=== PATIENT | male | born 1980 | race Hispanic/Latino ===

== ENCOUNTER → 2018-06-13 10:54 | Outpatient (CLI) | payer MEDICAID, SELFPAY ==
[2018-06-13 14:48] LABS: Absolute Lymphocyte Count 2.85 X10^3/ul (0.83-4.51); Absolute Neutrophil Count 3.2 X10^3/uL (2.0-7.7); Basophil# 0.02 X10^3/uL; Basophil% 0.3 % (0-1); Eosinophil# 0.07 X10^3/uL; Hemoglobin 15.5 g/dl (13.0-16.5); Lymphocyte # 2.85 X10^3/ul (4.0); Lymphocyte % 42.6 % (19-41); Mean Corpuscular Hgb 32.4 pg (27.0-32.0); Mean Corpuscular Volume 98.3 fL (80-94); Mean Platelet Vol. 10.6 fl (6.2-12.0); Monocyte# 0.49 X10^3/uL; Monocyte% 7.3 % (0-10); Neutrophil # 3.23 X10^3/uL (2.7-7.7); Neutrophil % 48.4 % (47-70); Platelet Count 207 K/mm3 (150-450); RBC Distribution Width CV 12.8 % (11.6-14.6); RBC Distribution Width SD 45.3 fl (35.1-43.9); Red Blood Count 4.78 M/mm3 (4.6-6.2); White Blood Count 6.7 K/mm3 (4.4-11.0)
[2018-06-13 14:52] LABS: POSITIVE COUNT NO; POSITIVE DIFFERENTIAL NO; POSITIVE MORPHOLOGY NO
[2018-06-13 14:58] LABS: AST(SGOT) 21 U/L (15-37); Alanine Aminotransfer ALT/SGPT 41 U/L (16-61); Albumin, Serum 3.8 g/dL (3.2-5.0); Alkaline Phosphatase 67 U/L (45-117); Anion Gap 8 (5-15); BUN 17 mg/dL (7-18); BUN/Creat Ratio 16.2 RATIO (10-20); Calcium,Total 8.9 mg/dL (8.5-10.1); Chloride 107 mmol/L (98-107); Cholesterol 203 mg/dL (200); Creatinine, Serum 1.05 mg/dL (0.70-1.30); EST Glomerular Filtration Rate 85 mL/min (>60); Est Glom Filt Rate - Afr Amer 103 mL/min (>60); Globulin 3.8 g/dL (2.2-4.2); Glucose 102 mg/dL (74-106); High Density Lipoprotein 40 mg/dL; Potassium 4.3 mmol/L (3.5-5.1); Protein, Total 7.6 g/dL (6.4-8.2); Sodium Level 141 mmol/L (136-145); Triglycerides 265 mg/dL; Very Low Density Lipoprotein 53 mg/dL (5-40)
== END ==
PROVIDERS: Family Provider Family Medicine; PCP Family Medicine; Visit Provider Family Medicine
DX: Z00.01 Encounter for general adult medical examination with abnormal findings (principal)
CPT/HCPCS: 36415; 80053; 80061; 85025

== ENCOUNTER → 2018-06-28 16:51 | Outpatient (CLI) | payer OTHER, SELFPAY ==
--- NOTE | 2018-06-28 16:55 | RAD_ITS ---
STUDY: X-RAY - ORBITS REASON FOR EXAM: Male, 38 years old. This study is being performed as a clearance examination for exclusion of orbital metal, prior to the performance of an MRI examination. TECHNIQUE: 2 view(s) of the orbits were obtained. COMPARISON: None. FINDINGS: Normal bilateral orbits without a metallic orbital foreign body. Normal visualized facial bones. Normal paranasal sinuses. The soft tissue structures are unremarkable. RAD/Orbits for Foreign Body IMPRESSION: No demonstrated metallic orbital foreign body. The patient is cleared for an MRI examination. Electronically Signed: Kamla Clemente MD at 17:56 EDT Tel , Service support ,
--- NOTE | 2018-06-28 18:15 | MRI_ITS ---
STUDY: MRI BRAIN WITH AND WITHOUT CONTRAST REASON FOR EXAM: Male, 38 years old. Diplopia, headache, fatigue. TECHNIQUE: Standardized multiplanar fat and water weighted pulse sequences were obtained. 20 IV Dotarem was administered for the contrast portion of the examination. COMPARISON: None. FINDINGS: Normal size of the ventricles and extra-axial spaces for the patient's age. Normal white matter tracts of the supratentorial brain. Normal bilateral basal ganglia. Normal thalami. There is no extra-axial fluid accumulation. Normal flow voids within the major intracranial circulation suggesting patency by spin echo criteria. There is no enhancing intra-axial or extra-axial abnormality. Normal sella turcica, pituitary gland, infundibular stalk, optic chiasm and hypothalamus. Cavernous sinuses are unremarkable. Normal midbrain, sheila and medulla. Normal cerebellum. Normal basal cisterns. Normal bilateral temporal bones. Normal bilateral internal auditory canals. No demonstrated orbital abnormality, within the constraints of a routine brain study. Extraocular muscles are symmetric. There is no demonstrated mass or enhancing lesion. No orbital infiltration is noted. There is mild mucosal thickening in the left maxillary sinus. Normal calvarium and skull base. Normal visualized soft tissue structures. MRI/Brain W/WO Contrast IMPRESSION: Normal unenhanced and enhanced MRI of the brain. Trace chronic sinusitis. Electronically Signed: Kamla Clemente MD at 21:41 EDT Tel , Service support ,
== END ==
PROVIDERS: Family Provider Family Medicine; PCP Family Medicine; Referring Provider Family Medicine; Visit Provider Family Medicine
DX: H55.00 Unspecified nystagmus (principal); H53.2 Diplopia
CPT/HCPCS: 70030; 70553; A9575

== ENCOUNTER 2020-04-21 11:51 | Emergency (ER) | payer OTHER, SELFPAY ==
[2020-04-21 11:52] VITALS: BP 107/48; PULSE 82; RESP 16; TEMP 36.1; O2SAT 98; BMI 27.6
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
== END 2020-04-21 12:56 | disposition home or self-care (01) ==
LOC: ED 12:37
PROVIDERS: Emergency Provider Emergency Medicine; PCP Family Medicine
DX: S05.02XA Injury of conjunctiva and corneal abrasion without foreign body, left eye, initial encounter (principal); W45.8XXA Other foreign body or object entering through skin, initial encounter; Y92.89 Other specified places as the place of occurrence of the external cause; Y99.0 Civilian activity done for income or pay
CPT/HCPCS: 99283

== ENCOUNTER 2021-09-13 08:35 | Emergency (ER) | payer OTHER, SELFPAY ==
[2021-09-13 08:36] VITALS: BP 126/96; PULSE 97; RESP 14; TEMP 36.2; O2SAT 99; BMI 27.6
--- NOTE | 2021-09-13 09:22 | RAD_ITS ---
STUDY: X-RAY - LEFT FOOT CLINICAL: Male, 41 years old. pain UNABLE TO PUT PRESSURE ON FOOT, NKI TECHNIQUE: 3 view(s) of the foot. COMPARISON: None. FINDINGS: Normal talus, calcaneus, and tarsal bones. No visualized plantar calcaneal spur. Normal visualized subtalar, talonavicular, calcaneocuboid, tarsal and tarsometatarsal articulations. Normal metatarsi. Normal metatarsophalangeal joint of the great toe. Normal tibial and fibular sesamoid bones. Normal interphalangeal joint of the great toe. Normal phalanges of the great toe. Normal second through fifth metatarsophalangeal joints. Normal interphalangeal joints and phalanges of the lesser toes. The soft tissue structures are unremarkable. There is no demonstrated fracture. RAD/Foot min 3 Views IMPRESSION: Normal x-ray examination of the foot. Electronically Signed: Joe Hall MD at 9:52 EDT ,
--- NOTE | 2021-09-13 09:22 | VDLE_ITS ---
Reason For Study: Pain Procedure LEFT This is a venous duplex using B-mode, color GSV is normal. flow and spectral Doppler. CFV is compressible, spontaneous, phasic, Exam performed portable in ED. competent, and demonstrates normal A preliminary report was called and/or faxed augmentation. to [facility]. FV is compressible, spontaneous, phasic, competent and demonstrates normal augmentation. POP V is compressible, spontaneous, phasic, competent and demonstrates normal augmentation. T/P Trunk is compressible. PTV is compressible. LT PerV is compressible. VL/Venous Duplex US, Unilateral Interpretation Summary There is no evidence of left lower extremity deep vein thrombosis. Left great s aphenous vein appears patent and compressible segmentally. Ordering Physician: Marisel Bazzi Referring Physician: Lilli Agustin Performed By: Kelley Almanzar RVT
--- NOTE | 2021-09-13 09:23 | ED.VIS.LOWEX ---
HPI History of Present Illness Chief Complaint: Lower Extremity Injury Detail of Chief Complaint: Pain to left leg x4 days Informant: patient Narrative Narrative: Patient states that he initially developed pain in the left foot 4 days ago over the area of the heel. Patient subsequently started having pain in his calf and now noticed 2 days ago that he had bruising to the posterior part of his thigh. Patient denies any injury or trauma. Patient complains of pain in his foot with walking. He denies chest pain or shortness of breath. No history of recent travel or surgery. No history of DVT. [facility] Medical History (Updated 09/13/21 @ 10:[address] Marisel Bazzi, DO) ADHD (attention deficit hyperactivity disorder) Home Medications NK 04/21/20 [History Last Taken Unknown] ciprofloxacin HCl 2 drp LEFT EYE Q4 #1 bottle 04/21/20 [Rx Last Taken Unknown] Allergy/AdvReac Type Severity Reaction Status Date / Time No Known Allergies Allergy Verified 09/13/21 08:37 Social History Smoking Status: Never smoker ROS ROS ED Constitutional Constitutional ED: Reports systems reviewed and no addt'l complaints, except as documented; Denies body ache(s), change in weight or chills Eyes Eyes: Denies acute decrease in peripheral vision, change in vision, double vision or loss of vision ENT ENT ED: Reports none; Denies ear pain, lip swelling, loss taste/smell, neck pain, otalgia or sore throat Cardiovascular Cardiovascular: Reports none; Denies abdominal pain, chest pain with activity, leg edema, lightheadedness, palpitations, rapid heart rate or syncope Respiratory/Chest Respiratory/Chest: Reports none; Denies change in mental status, dry cough, dyspnea, hemoptysis, shortness of breath at rest or shortness of breath with exertion Gastrointestinal Gastrointestinal: Reports none; Denies abdominal pain, change in stool character, diarrhea, hematemesis, hematochezia, melena, rectal bleeding or vomiting Genitourinary Genitourinary ED: Reports none; Denies abdominal discomfort, anuria, dysuria, genital pain or polyuria Musculoskeletal Musculoskeletal: Reports none and other Details: Pain left foot, calf, and thigh ; Denies arthralgias, back pain, difficulty walking, extremity pain, muscle weakness or myalgias Integumentary Reports none; Denies abscess or rash Neurologic Neurologic: Reports none; Denies abnormal gait, confusion, focal weakness, frequent falls, headache(s), loss of vision, numbness, paresthesias, radicular pain, vertigo or weakness Psychiatric Psychiatric: Reports systems reviewed and no addt'l complaints, except as documented and none; Denies behavioral changes, confusion, difficulty concentrating, hallucinations, suicidal ideation, tactile hallucinations or visual hallucinations Endocrine Endocrinology: Denies none, cold intolerance, excessive sweating, fatigue or heat intolerance Hematologic/Lymphatic Hematologic/Lymphatic: Reports none; Denies anemia, easy bleeding or easy bruising Allergic/Immunologic Allergic/Immunologic ED: Denies as per HPI, none, lip swelling, mouth swelling, throat swelling, tongue swelling or hives EXAM Physical Exam Const Vital Signs: 09/13/21 08:36 Temperature 97.1 F L Temperature Source Temporal Pulse Rate 97 Respiratory Rate 14 Blood Pressure 126/96 H Blood Pressure Mean 106 Pulse Ox 99 Oxygen Delivery Method Room Air Positive well nourished and well developed General Appearance ED: well developed and NAD HEENT Reports TM's clear and moist mucous membranes normocephalic and atraumatic; Negative for trauma or tenderness Tympanic Membrane ED: Yes TM's clear Eyes PERRL and EOMs intact bilaterally General Eye ED: Negative for pale conjunctiva or scleral icterus Neck no lymphadenopathy, supple and no JVD General: Negative for tenderness Chest Wall inspection of chest normal and palpation of chest normal Chest: Negative for tenderness Resp normal respiratory effort and clear to auscultation bilaterally Effort and Inspection: Negative for respiratory distress or pain with movement Auscultation: Negative for rhonchi, wheezes or diminished lung sounds Cardio regular rate, regular rhythm, S1 normal heart sound, S2 normal heart sound and no murmurs Peripheral Pulses: pulses 2+ throughout GI normal to inspection, nondistended, normoactive bowel sounds, soft to palpation, non-tender, non-distended and no masses Back/Spine no CVA tenderness and no thoracic nor lumbar tenderness Extremity Extremity Narrative: Left foot-no evidence of trauma. No deformity. Mild discomfort to palpation over the plantar aspect of the heel. No lower leg edema noted. No ropes or cords palpated. Patient does have some ecchymosis and bruising noted to the posterior distal thigh. Patient has normal pulses. General Extremety ED: Negative for edema General Extremity: Negative for edema Neuro oriented x3, CN's II-XII intact bilaterally, no sensory deficits noted and gait normal Sensorium / Orientation: awake, alert, oriented to person, oriented to place and oriented to time Motor Exam: strength 5/5 throughout and strength abnormal Psych mental status grossly normal Skin no rashes or lesions noted and no wounds MDM MDM MDM Narrative Medical decision making narrative: Patient had venous Doppler of the left lower extremity that was negative for DVT. Patient had an x-ray of his left foot that was unremarkable. At this point etiology of discomfort unclear. He will take ibuprofen for discomfort and he will be referred to podiatry for follow-up if the pain persists. Patient did not want crutches. Radiography Diagnostic Testing: Clinical Impression(s) from Imaging Studies Foot X-Ray 09/13/21 09:22 IMPRESSION: Normal x-ray examination of the foot. Electronically Signed: Joe Hall MD at 9:52 EDT Reading Location ID and State: [address] [place] [address] , Service support , Three-view x-rays of left foot obtained interpreted by myself as no acute fractures or dislocations. Radiology in agreement. Discharge Plan Triage Chief Complaint: Lower Extremity Injury ED Provider: Marisel Bazzi Dx/Rx/DC Orders Clinical Impression: Acute foot pain Instructions: ED Pain, Acute, Uncertain Cause Prescriptions: No Action NK RF: 0 ciprofloxacin HCl 1 DROP bottle 2 drp LEFT EYE Q4 Qty: 1 RF: 0 Primary Care Provider: Lilli Augstin Referrals: Lilli Agustin MD [Primary Care Provider] - Kit Neves DPM [STAFF PHYSICIAN] - 3-5 Days Disposition Disposition: Home, Self Care
[2021-09-13 10:50] VITALS: PULSE 89; RESP 17; O2SAT 99
== END 2021-09-13 10:51 | disposition home or self-care (01) ==
PROVIDERS: Emergency Provider Emergency Medicine; PCP Family Medicine; Visit Provider Emergency Medicine
DX: M79.673 Pain in unspecified foot (principal); M79.605 Pain in left leg; M79.659 Pain in unspecified thigh; F90.9 Attention-deficit hyperactivity disorder, unspecified type
CPT/HCPCS: 73630; 93971; 99282

== ENCOUNTER 2022-07-11 19:00 | Emergency (ER) | payer OTHER, SELFPAY ==
[2022-07-11 19:00] VITALS: BP 146/82; PULSE 114; RESP 18; TEMP 36.3; O2SAT 97; BMI 29.0
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
[2022-07-11] MEDS: Acetaminophen 325 MG Tablet 650 MG PO (21:35)
[2022-07-11] MEDS: Lidocaine 1% /Epi 1:100 (20ml) 20 ML Vial INFILT (21:36)
== END 2022-07-11 22:38 | disposition home or self-care (01) ==
PROVIDERS: Emergency Provider Emergency Medicine; PCP Family Medicine; Visit Provider Emergency Medicine
DX: S01.01XA Laceration without foreign body of scalp, initial encounter (principal); S06.9X0A Unspecified intracranial injury without loss of consciousness, initial encounter; V18.0XXA Pedal cycle driver injured in noncollision transport accident in nontraffic accident, initial encounter; Y93.89 Activity, other specified
CPT/HCPCS: 13121; 70450; 99283

== ENCOUNTER → 2022-09-11 | Outpatient (CLI) | payer OTHER, SELFPAY ==
[2022-09-11 12:43] LABS: Absolute Lymphocyte Count 3.31 X10^3/uL (0.83-4.51); Absolute Neutrophil Count 3.4 X10^3/uL (2.0-7.7); Basophil# 0.03 X10^3/uL; Basophil% 0.4 % (0-1); Eosinophil# 0.37 X10^3/uL; Eosinophils% 4.8 % (0-5); Hematocrit 45.8 % (40-54); Hemoglobin 15.6 g/dL (13.0-16.5); Lymphocyte # 3.31 X10^3/ul (0.83-4.51); Mean Corp Hgb Conc 34.1 g/dL (32-36); Mean Corpuscular Hgb 32.7 pg (27.0-32.0); Mean Platelet Vol. 10.3 fl (6.2-12.0); Monocyte# 0.54 X10^3/uL; NRBC Flagged by Analyzer 0 % (0-5); Neutrophil # 3.41 X10^3/uL (2.7-7.7); Neutrophil % 44.4 % (47-70); Platelet Count 212 K/mm3 (150-450); RBC Distribution Width CV 12.3 % (11.6-14.6); RBC Distribution Width SD 44.1 fl (35.1-43.9); Red Blood Count 4.77 M/mm3 (4.6-6.2); White Blood Count 7.7 K/mm3 (4.4-11.0)
[2022-09-11 13:39] LABS: ALB/GLOB Ratio 0.9 RATIO (0.9-2.4); AST(SGOT) 21 U/L (15-37); Alanine Aminotransfer ALT/SGPT 45 U/L (16-61); Albumin, Serum 3.5 g/dL (3.2-5.0); Alkaline Phosphatase 61 U/L (45-117); Anion Gap 6 (5-15); BUN 18 mg/dL (7-18); BUN/Creat Ratio 18.7 RATIO (10-20); Calcium,Total 9.2 mg/dL (8.5-10.1); Chloride 108 mmol/L (98-107); Cholesterol 229 mg/dL (200); Creatinine, Serum 0.96 mg/dL (0.70-1.30); EST Glomerular Filtration Rate 92 mL/min (>60); Est Glom Filt Rate - Afr Amer 111 mL/min (>60); Globulin 3.9 g/dL (2.2-4.2); Glucose 100 mg/dL (74-106); High Density Lipoprotein 39 mg/dL; Potassium 4.1 mmol/L (3.5-5.1); Protein, Total 7.4 g/dL (6.4-8.2); Sodium Level 139 mmol/L (136-145); Triglycerides 290 mg/dL; Very Low Density Lipoprotein 58 mg/dL (5-40)
== END | disposition home or self-care (01) ==
LOC: BFHLAB 10:22
PROVIDERS: PCP Family Medicine; Referring Provider Family Medicine; Visit Provider Family Medicine
DX: Z00.01 Encounter for general adult medical examination with abnormal findings (principal)
CPT/HCPCS: 36415; 80053; 80061; 85025

== ENCOUNTER 2023-06-24 19:59 | Emergency (ER) | payer OTHER, SELFPAY ==
[2023-06-24 19:59] VITALS: BP 146/90; PULSE 96; RESP 16; TEMP 36.6; O2SAT 97; BMI 29.9
--- NOTE | 2023-06-24 20:21 | RAD_ITS ---
INDICATION: laceration, index finger EXAMINATION/TECHNIQUE: X-RAY - RIGHT HAND XR Fingers Min 2 Views COMPARISON: None. FINDINGS: 3 views of the right index finger. BONES: Normal anatomic alignment without evidence of fracture or subluxation. No concerning bony lesion or abnormal sclerosis to suggest lesion. JOINTS: No significant degenerative change. SOFT TISSUES: Unremarkable. RAD/Finger(s) Min 2 Views IMPRESSION: No acute osseous abnormality or radiopaque foreign body of the right index finger. Electronically Signed: Roberto Carlos Chau MD at 22:51 EDT ,
--- NOTE | 2023-06-24 20:34 | EDS_ITS ---
HPI <ERICA Pardo - Last Filed: 06/24/23 21:59> History of Present Illness Chief Complaint: Laceration Narrative Narrative: Patient presenting today with a laceration to his right index finger that he got this evening at work. He reports that he was working with a dryer when he cut his finger on a piece of metal. Tetanus was updated about a year ago. He is not on any blood thinners. He is right-handed. He denies any other injury. PFSH <ERICA Pardo - Last Filed: 06/24/23 21:59> [facility] Medical History ADHD (attention deficit hyperactivity disorder) Home Medications NK 04/21/20 [History Last Taken Unknown] Allergy/AdvReac Type Severity Reaction Status Date / Time No Known Allergies Allergy Verified 06/24/23 20:01 Social History Smoking Status: Never smoker ROS <ERICA Pardo - Last Filed: 06/24/23 21:59> ROS ED Constitutional Constitutional ED: Denies chills or fever(s) Cardiovascular Cardiovascular: Denies chest pain Respiratory/Chest Respiratory/Chest: Denies cough or dyspnea Gastrointestinal Gastrointestinal: Denies abdominal pain, nausea or vomiting Musculoskeletal Musculoskeletal: Denies arthralgias or myalgias Integumentary Reports laceration Neurologic Neurologic: Denies paresthesias EXAM <ERICA Pardo - Last Filed: 06/24/23 21:59> Physical Exam Const Vital Signs: 06/24/23 19:59 Temperature 97.8 F Temperature Source Temporal Pulse Rate 96 Respiratory Rate 16 Blood Pressure 146/90 H Blood Pressure Mean 108 Pulse Ox 97 Oxygen Delivery Method Room Air Positive well nourished, well developed and no apparent distress General Appearance ED: well developed HEENT Reports normocephalic and head/scalp atraumatic Mouth ED: Yes moist mucous membranes normal Eyes PERRL and EOMs intact bilaterally Neck full ROM and supple Chest Wall inspection of chest normal Resp normal respiratory effort and clear to auscultation bilaterally Cardio regular rate and regular rhythm GI soft to palpation, non-tender, non-distended and no masses Back/Spine normal ROM and normal to inspection Extremity normal to inspection and full ROM Extremity Narrative: 4.5 cm linear full-thickness laceration along the lateral aspect of the right second finger. Full flexion and extension at the MCP, PIP, DIP joints of the right second finger. No obvious tendon injury, sensation intact, good capillary refill, right radial pulse 2+. Neuro oriented x3, CN's II-XII intact bilaterally, moves all extremities, no focal motor deficits and no sensory deficits noted Sensorium / Orientation: awake and alert Psych mental status grossly normal and thought process normal [facility] <ERICA Pardo - Last Filed: 06/24/23 21:59> [facility] Narrative Medical decision making narrative: Patient presenting today with a laceration to his right index finger that he got while working on a dryer at home this evening and cut it on a piece of metal. Tetanus is up-to-date. X-ray will be obtained to rule out foreign body and is negative. He does not appear to have any tendon injury. Full flexion extension at the MCP, PIP, DIP joints of his right second finger. This will require suturing. Finger was copiously irrigated with normal saline and cleaned with chlorhexidine. 12 sutures were placed, see procedure note. Patient tolerated procedure well, bandage and bacitracin ointment applied the patient was placed in a aluminum finger splint. Wound care instructions discussed and he is to have stitches out in 10 days. He will be discharged home in stable condition and is comfortable with plan. <Dr. Iftikhar Mireles DO - Last Filed: 06/25/23 00:22> [facility] Narrative Medical decision making narrative: Patient presenting today with a laceration to his right index finger that he got while working on a dryer at home this evening and cut it on a piece of metal. Tetanus is up-to-date. X-ray will be obtained to rule out foreign body and is negative. He does not appear to have any tendon injury. Full flexion extension at the MCP, PIP, DIP joints of his right second finger. This will require suturing. Finger was copiously irrigated with normal saline and cleaned with chlorhexidine. 12 sutures were placed, see procedure note. Patient tolerated procedure well, bandage and bacitracin ointment applied the patient was placed in a aluminum finger splint. Wound care instructions discussed and he is to have stitches out in 10 days. He will be discharged home in stable condition and is comfortable with plan. Interventions / MDM: Differential diagnosis: Laceration Diagnosis considered but do not suspect: No clinical tendon injury. No foreign body on x-ray. My EKG interpretation: N/A Imaging independently reviewed and interpreted by myself: Three-view x-ray right hand: No fractures, no radiopaque foreign body. External documents reviewed: N/A Test considered but not ordered:N/A ED course: Attending note: Patient seen and evaluated with bicycle technician. I perform my own [id number] evaluation. I agree with the plan of work-up. Laceration right index on a metal dryer. Tetanus a year ago. No anticoagulation medicines. Exam full-thickness laceration radial aspect proximal phalanx of the index finger bleeding controlled with pressure. Full range of motion flexion extension of the digit with no weakness. Sensation intact distally. X-ray obtained negative for any radiopaque foreign bodies. No clinical tendon injury. Laceration 4.5 cm in length. This was repaired by bicycle technician. AlumaFoam splint for immobilization help with the healing. Outpatient follow-up and suture removal. Re-evaluation: stable Disposition discussed with patient/family/significant other: Patient Case discussed with consulting clinician: N/A This note was generated with [employer] dictation software. It may contain incorrect words, spelling, and punctuation that were not noted in checking the note before signing. Procedures <ERICA Pardo - Last Filed: 06/24/23 21:59> Lacerations Laceration: Length: 1.77 in Depth: Sub Q Shape: Linear Prep: Chlorhexadine Laceration repair: Digital block, Irrigated and Lidocaine Irrigated (ml): 200 Number of Sutures/Prateek: 12 Suture Information: Ethilon, Simple and 5-0 Discharge Plan Triage Chief Complaint: Laceration ED Midlevel Provider: Do Yeboah ED Provider: Iftikhar Mireles Dx/Rx/DC Orders Clinical Impression: Finger laceration Instructions: ED Laceration, All Closures Prescriptions: No Action NK Primary Care Provider: Lilli Agustin Referrals: Lilli Agustin MD [Primary Care Provider] - 10 Day for suture removal Activity Restrictions/Additional Instructions: Please follow-up with your PCP to have the sutures removed, return for any signs of infection. Keep wound clean and covered while at work. Disposition Disposition: Home, Self Care Discharge Date/Time: 06/24/23 22:07
[2023-06-24] MEDS: Lidocaine 1% (20 ml mdv) 20 ML Vial 10 ML INFILT (20:36)
[2023-06-24 22:06] VITALS: BP 134/76; PULSE 81; RESP 16; TEMP 36.1; O2SAT 99
== END 2023-06-24 22:07 | disposition home or self-care (01) ==
PROVIDERS: Emergency Provider Emergency Medicine; PCP Family Medicine; Visit Provider Emergency Medicine
DX: S61.210A Laceration without foreign body of right index finger without damage to nail, initial encounter (principal); W26.8XXA Contact with other sharp object(s), not elsewhere classified, initial encounter; Y93.89 Activity, other specified; Y92.89 Other specified places as the place of occurrence of the external cause
CPT/HCPCS: 12002; 73140; 99283

== ENCOUNTER → 2023-09-14 | Outpatient (CLI) | payer OTHER, SELFPAY ==
[2023-09-14 16:14] LABS: Anion Gap 5 (5-15); BUN 14 mg/dL (7-18); Calcium,Total 9.4 mg/dL (8.5-10.1); Chloride 106 mmol/L (98-107); Cholesterol 221 mg/dL (200); EST Glomerular Filtration Rate 87 mL/min (>60); Est Glom Filt Rate - Afr Amer 106 mL/min (>60); Glucose 106 mg/dL (74-106); High Density Lipoprotein 44 mg/dL; Potassium 4.6 mmol/L (3.5-5.1); Sodium Level 137 mmol/L (136-145); Triglycerides 232 mg/dL; Very Low Density Lipoprotein 46 mg/dL (5-40)
== END | disposition home or self-care (01) ==
LOC: BFHLAB 11:47
PROVIDERS: PCP Family Medicine; Referring Provider Family Medicine; Visit Provider Family Medicine
DX: Z00.01 Encounter for general adult medical examination with abnormal findings (principal)
CPT/HCPCS: 36415; 80048; 80061

== ENCOUNTER → 2024-09-21 | Outpatient (CLI) | payer OTHER, SELFPAY ==
[2024-09-21 19:01] LABS: Anion Gap 13 (5-15); BUN 16 mg/dL (4-19); Calcium,Total 9.6 mg/dL (7.6-11.0); Carbon Dioxide 19.7 mmol/L (21.0-32.0); Chloride 103 mmol/L (98-108); Cholesterol 201 mg/dL (<=200); Creatinine, Serum 0.88 mg/dL (0.70-1.20); EST Glomerular Filtration Rate 110 (>60); Glucose 98 mg/dL (70-99); High Density Lipoprotein 39 mg/dL; Low Density Lipoprotein Calc. 115 mg/dL; Potassium 4.3 mmol/L (3.3-5.1); Sodium Level 136 mmol/L (133-145); Triglycerides 237 mg/dL; Very Low Density Lipoprotein 47 mg/dL (5-40); cholesterol:hdl ratio screen 5.15
== END | disposition home or self-care (01) ==
PROVIDERS: PCP Family Medicine; Visit Provider Family Medicine
DX: Z00.01 Encounter for general adult medical examination with abnormal findings (principal); L74.511 Primary focal hyperhidrosis, face; R63.4 Abnormal weight loss
CPT/HCPCS: 36415; 80048; 80061; 84443